=== PATIENT | female | born 1940 | race Caucasian/White ===

== ENCOUNTER 2022-09-27 08:37 | Inpatient (IN) | payer MEDICARE, MEDICAID ==
[~2022-09-27] VITALS: Ht 160 cm; Wt 56.7 kg
[2022-09-27] MEDS ORDERED: SODIUM CHLORIDE 0.9% 1,000 ML IV ONE (09:00)
[2022-09-27 10:25] LABS: BASOPHILS % 0.5 % (0.0-2.0); HEMATOCRIT. 36.4 % (36.0-48.0); HEMOGLOBIN. 12.3 g/dL (12.0-16.0); LYMPHOCYTES % 10.6 % (20.0-50.0); MEAN CORPUSCULAR HEMOGLOBIN 29.5 pg (28.0-32.0); MEAN PLATELET VOLUME 8.1 fl (7.4-10.4); MONOCYTES % 8.1 % (2.0-8.0); NEUTROPHILS % 79.8 % (40.0-76.0); PLATELET 186 x1000/uL (130-400); RED BLOOD CELL COUNT 4.18 mill/uL (4.2-5.4); RED CELL DISTRIBUTION WIDTH 14.8 % (11.6-14.6)
[2022-09-27 10:36] LABS: INR 1.1; PROTHROMBIN TIME 11.5 sec (9.6-11.0)
[2022-09-27 10:42] LABS: CHLORIDE 101 mEq/L (98-107)
[2022-09-27] MEDS ORDERED: PANTOPRAZOLE SODIUM 40 MG/VIAL IV ONE (11:45)
[2022-09-27] MEDS ORDERED: PANTOPRAZOLE SODIUM 40 MG/VIAL IV SCH (14:30)
[2022-09-27 18:36] VITALS: BP 168/54
[2022-09-27] MEDS ORDERED: LINA145C PO (18:56)
[2022-09-27] MEDS ORDERED: LOSA1TAB40 MT (18:56)
[2022-09-27] MEDS ORDERED: GABA-532 PO (18:56)
[2022-09-27] MEDS ORDERED: ICOS1CAP PO (19:00)
[2022-09-27] MEDS ORDERED: EMPA25TA PO (19:00)
[2022-09-27] MEDS ORDERED: LABE300T36 PO (19:00)
[2022-09-27] MEDS ORDERED: SITA100T11 MT (19:00)
[2022-09-27] MEDS ORDERED: CARB-33 PO (19:00)
[2022-09-27 20:00] VITALS: BP 183/54
[2022-09-27] MEDS ORDERED: HYDROCODONE/ACETAMINOPHEN 7.5/325MG TABLET PO PRN (22:45)
[2022-09-27] MEDS ORDERED: HYDROCODONE/ACETAMINOPHEN 5/325MG TABLET PO PRN (22:45)
[2022-09-27] MEDS ORDERED: ONDANSETRON HCL 4MG/2ML INJ IV PRN (22:45)
[2022-09-27] MEDS ORDERED: ACETAMINOPHEN 325MG TABLET PO PRN ×2 (22:45)
[2022-09-27] MEDS ORDERED: IPRATROPIUM/ALBUTEROL 0.5-3(2.5)MG/3ML NEB HHN PRN (22:45)
[2022-09-27] MEDS ORDERED: GUAIFENESIN 200MG/10ML SUGAR FREE UDC PO PRN (22:45)
[2022-09-27] MEDS ORDERED: DEXTROSE 50% WATER 50ML SYRINGE IV PRN (23:00)
[2022-09-27] MEDS ORDERED: CEFTRIAXONE 1 G PREMIX 50 ML IV SCH (23:00)
[2022-09-27] MEDS ORDERED: SODIUM CHLORIDE 0.9% 1,000 ML IV SCH (23:00)
[2022-09-28] VITALS: BP 166/41
[2022-09-28] MEDS: AMLODIPINE 5MG TABLET PO SCH ×2 (00:23→10:02)
[2022-09-28] MEDS: LOSARTAN POTASSIUM 50 MG TABLET PO SCH ×2 (00:23→10:01)
[2022-09-28] MEDS: CARBIDOPA/LEVODOPA 25/250MG TABLET PO SCH ×4 (00:36→19:30)
[2022-09-28] MEDS ORDERED: CEFTRIAXONE 1,000 MG in DEXTROSE 5% WATER 50 ML IV SCH (01:00)
[2022-09-28] MEDS: METRONIDAZOLE 500 MG PREMIX 100 ML IV SCH ×2 (01:24→10:02)
[2022-09-28 04:00] VITALS: BP 171/42
[2022-09-28] MEDS: PANTOPRAZOLE SODIUM 40 MG/VIAL IV SCH ×2 (04:17→17:22)
[2022-09-28] MEDS: CLONIDINE 0.1MG TABLET PO PRN (04:18)
[2022-09-28] MEDS: BLOOD SUGAR DIAGNOSTIC STRIP TEST SCH ×4 (05:50→21:03)
[2022-09-28 08:00] VITALS: BP 175/48
[2022-09-28] MEDS: INSULIN LISPRO 100 UNITS/ML SUBCUT SCH ×4 (08:10→21:03)
[2022-09-28] MEDS: LABETALOL HCL 100MG TABLET PO SCH ×2 (10:01→21:00)
[2022-09-28 10:11] LABS: BASOPHILS % 0.5 % (0.0-2.0); EOSINOPHILS % 1.1 % (0.0-5.0); HEMATOCRIT. 34.6 % (36.0-48.0); HEMOGLOBIN. 11.8 g/dL (12.0-16.0); LYMPHOCYTES % 10.6 % (20.0-50.0); MEAN CORPUSCULAR HEMOGLOBIN 29.9 pg (28.0-32.0); MEAN PLATELET VOLUME 8.2 fl (7.4-10.4); MONOCYTES % 5.6 % (2.0-8.0); NEUTROPHILS % 82.2 % (40.0-76.0); PLATELET 183 x1000/uL (130-400); RED BLOOD CELL COUNT 3.93 mill/uL (4.2-5.4); RED CELL DISTRIBUTION WIDTH 15.1 % (11.6-14.6)
[2022-09-28 12:00] VITALS: BP 144/48
[2022-09-28] MEDS ORDERED: DEXT 5%/0.45% NACL 500ML 1,000 ML IV SCH (13:15)
[2022-09-28 16:00] VITALS: BP 166/46
[2022-09-28] MEDS ORDERED: SODIUM CHLORIDE 0.45% 1,000 ML IV SCH (19:30)
[2022-09-28] MEDS ORDERED: ZOLPIDEM TARTRATE 5MG TABLET PO PRN (19:45)
[2022-09-28 20:00] VITALS: BP 180/52
[2022-09-29] VITALS: BP 172/56
[2022-09-29] MEDS: CARBIDOPA/LEVODOPA 25/250MG TABLET PO SCH ×3 (00:24→05:29)
[2022-09-29] MEDS: CLONIDINE 0.1MG TABLET PO PRN (00:24)
[2022-09-29] MEDS: BLOOD SUGAR DIAGNOSTIC STRIP TEST SCH ×3 (00:24→05:29)
[2022-09-29] MEDS ORDERED: LORAZEPAM 2MG/ML CPJ IV PRN (00:45)
[2022-09-29 04:00] VITALS: BP 128/59
[2022-09-29] MEDS: PANTOPRAZOLE SODIUM 40 MG/VIAL IV SCH (04:48)
[2022-09-29 07:13] LABS: BASOPHILS % 0.6 % (0.0-2.0); EOSINOPHILS % 2.9 % (0.0-5.0); HEMATOCRIT. 34.2 % (36.0-48.0); HEMOGLOBIN. 11.8 g/dL (12.0-16.0); LYMPHOCYTES % 14.3 % (20.0-50.0); MEAN CORPUSCULAR HEMOGLOBIN 29.8 pg (28.0-32.0); MEAN CORPUSCULAR VOLUME 86.8 fL (81.0-99.0); MEAN PLATELET VOLUME 8.4 fl (7.4-10.4); MONOCYTES % 6.1 % (2.0-8.0); NEUTROPHILS % 76.1 % (40.0-76.0); PLATELET 180 x1000/uL (130-400); RED BLOOD CELL COUNT 3.94 mill/uL (4.2-5.4); RED CELL DISTRIBUTION WIDTH 14.5 % (11.6-14.6)
[2022-09-29 08:00] VITALS: BP 157/65
[2022-09-29] MEDS: LOSARTAN POTASSIUM 50 MG TABLET PO SCH (09:08)
[2022-09-29] MEDS: AMLODIPINE 5MG TABLET PO SCH (09:08)
[2022-09-29] MEDS: LABETALOL HCL 100MG TABLET PO SCH (09:09)
[2022-09-29 10:45] LABS: CHLORIDE 104 mEq/L (98-107)
[2022-09-29 12:00] VITALS: BP 149/84
[2022-09-29 16:00] VITALS: BP 139/88
[2022-09-29] MEDS ORDERED: LACT10SO30 MT (16:02)
[2022-09-29] MEDS ORDERED: DOCU-155 PO (16:02)
[2022-09-29] MEDS ORDERED: TOBR5DRO2 LEFTEYE (16:02)
[2022-09-29 17:19] VITALS: BP 149/71
== END 2022-09-29 18:15 | disposition home or self-care (01) | DRG 395 ==
LOC: ER 08:49 → 7WST 13:29 → EDBEDREQTM 13:31 → EDBEDREQ 13:31 → ENRESERV 14:39
PROVIDERS: ADMIT Internal Medicine; ATTEND Internal Medicine
DX: K60.2 Anal fissure, unspecified (principal); K59.00 Constipation, unspecified; N20.0 Calculus of kidney; N28.1 Cyst of kidney, acquired; K64.4 Residual hemorrhoidal skin tags; E86.0 Dehydration; G20 Parkinson's disease; E11.40 Type 2 diabetes mellitus with diabetic neuropathy, unspecified; I10 Essential (primary) hypertension; K82.8 Other specified diseases of gallbladder; E78.00 Pure hypercholesterolemia, unspecified; E78.5 Hyperlipidemia, unspecified; R16.0 Hepatomegaly, not elsewhere classified; Z79.899 Other long term (current) drug therapy
CPT/HCPCS: 36415; 74176; 80048; 80053; 82962; 83036; 83735; 84100; 85025; 86850; 86900; 93005; 97162; 99285; C9113; J0696; J2060; J3490; J7030; J7060

== ENCOUNTER 2024-02-18 18:58 | Emergency (ER) | payer OTHER, MEDICAID ==
[~2024-02-18] VITALS: Ht 165.1 cm; Wt 60.0 kg
[~2024-02-18 18:58] MED LIST: AMLO5TAB88 MT; APIX5TAB MT; CARB-33 PO; DOCU-155 PO; EMPA25TA PO; GABA-532 PO; ICOS1CAP PO; LACT10SO81 MT; LINA145C PO; SITA100T11 MT; SULF1TAB48 MT; TOBR5DRO2 LEFTEYE
[2024-02-18 19:11] VITALS: O2SAT 98
[2024-02-18 21:58] LABS: BASOPHILS % 1.4 % (0.0-2.0); EOSINOPHILS % 7.2 % (0.0-5.0); HEMOGLOBIN. 12.3 g/dL (12.0-16.0); LYMPHOCYTES % 16.3 % (20.0-50.0); MEAN CORPUSCULAR HGB CONC 33.4 g/dL (31.0-37.0); MEAN CORPUSCULAR VOLUME 92.9 fL (81.0-99.0); MEAN PLATELET VOLUME 10.2 fl (7.4-10.4); MONOCYTES % 8.5 % (2.0-8.0); NEUTROPHILS % 66.6 % (40.0-76.0); PLATELET 142 x1000/uL (130-400); RED BLOOD CELL COUNT 3.98 mill/uL (4.2-5.4); RED CELL DISTRIBUTION WIDTH 14.8 % (11.6-14.6); WHITE BLOOD COUNT 5.8 x1000/uL (4.5-11.0)
[2024-02-18 22:00] VITALS: TEMP 97.8
[2024-02-18 22:10] LABS: INR 1.1; PARTIAL THROMBOPLASTIN TIME 26.5 sec (23.4-31.0); PROTHROMBIN TIME 12.4 sec (9.6-11.0)
[2024-02-18 23:14] VITALS: BP 158/78; PULSE 77; RESP 23
== END 2024-02-18 23:18 | disposition home or self-care (01) ==
LOC: ER 20:07
DX: R04.0 Epistaxis (principal); E11.9 Type 2 diabetes mellitus without complications; I10 Essential (primary) hypertension; E78.00 Pure hypercholesterolemia, unspecified; Z79.899 Other long term (current) drug therapy
CPT/HCPCS: 36415; 85025; 86850; 86900; 99283